=== PATIENT | male | born 1965 | race Caucasian/White ===

== ENCOUNTER 2017-04-04 05:17 | Day surgery (SDC) | payer OTHER ==
[2017-03-24 13:35] VITALS: BMI 29.2
[2017-04-04] MEDS ORDERED: BUPIVACAINE HCL/PF 0.5% (5MG/ML) 10 ML VIAL ONE (07:25)
[2017-04-04] MEDS ORDERED: LIDOCAINE 1%/EPI 1:100000 (50 ML MULTI DOSE VIAL) ONE (07:25)
[2017-04-04] MEDS ORDERED: MIDAZOLAM HCL 2 MG/2 ML SINGLE DOSE VIAL ONE (07:52)
[2017-04-04] MEDS ORDERED: PROPOFOL 20 ML ONE (07:52)
[2017-04-04] MEDS ORDERED: LIDOCAINE HCL/PF 2% SDV 5ML VIAL ONE (07:53)
[2017-04-04] MEDS ORDERED: DEXAMETHASONE SOD PHOSPHATE 4 MG/1 ML VIAL ONE (07:57)
[2017-04-04] MEDS ORDERED: SUCCINYLCHOLINE CHLORIDE 200 MG/10 ML VIAL ONE (08:08)
[2017-04-04] MEDS ORDERED: KETOROLAC TROMETHAMINE 30 MG/1 ML VIAL ONE (08:33)
[2017-04-04] MEDS ORDERED: LIDOCAINE HCL 1%, 10 MG/ML (20ML VIAL) IJ ONE (08:38)
[2017-04-04] MEDS ORDERED: BUPIVACAINE HCL/PF (5 MG/ML) 30 ML VIAL IJ ONE (08:39)
[2017-04-04] MEDS ORDERED: oxyCODONE HCL 5 MG TABLET PO PRN (08:42)
[2017-04-04] MEDS ORDERED: PROMETHAZINE HCL 25 MG/1 ML VIAL IVPUSH PRN (08:42)
[2017-04-04] MEDS ORDERED: LACTATED RINGERS SOLUTION 1,000 ML IV SCH (08:45)
--- NOTE | 2017-04-04 08:52 | HP ---
[facility] - Chief Complaint Chief Complaint: right knee pain History Source: Patient Limitations to Obtaining History: No Limitations - Past Medical History Allergies/Adverse Reactions: Allergies Allergy/AdvReac Type Severity Reaction Status Date / Time No Known Drug Allergies Allergy Verified 04/04/17 06:40 - Current Medications Current Medications: Home Medications Medication Instructions Recorded Amlodipine Bes/Olmesartan Med 1 each PO DAILY 03/24/17 [Amlodipine-Olmesartan 5-20 mg] Cholecalciferol (Vitamin D3) 50,000 unit PO WEEKLY 03/24/17 [Vitamin D3] Simvastatin 20 mg PO HS 03/24/17 Satellite Physical Exam - Physical Examination Vital Signs: Vital Signs Period Temp Pulse Resp BP Sys/Douglas Pulse Ox Last 24 Hr 97.3 F 56 18 135/84 97 Extremities: Other (+ joint line tenderness) Satellite Impression/Plan - Impression/Plan Impression: internal derangement right knee Operative Procedure: arthroscopy right knee Date to be Performed: 04/04/17
--- NOTE | 2017-04-04 08:55 | OP ---
Operative Note - Note: Operative Date: 04/04/17 Pre-Operative Diagnosis: internal derangement right knee Operation: arthroscopy right knee and debridement Post-Operative Diagnosis: Same as Pre-op Surgeon: Roel Yeboah Anesthesia: General Operative Report Dictated: Yes
[2017-04-04 09:20] VITALS: TEMP 97.8
[2017-04-04 12:26] VITALS: BP 128/78; PULSE 66
--- NOTE | 2017-04-05 10:26 | OP ---
DATE OF OPERATION: 04/04/2017 PREOPERATIVE DIAGNOSIS: Internal derangement, right knee. POSTOPERATIVE DIAGNOSIS: Internal derangement, right knee. PROCEDURE: Arthroscopy, right knee, with debridement. SURGICAL ATTENDING: Roel Yeboah MD ANESTHESIA: General with LMA. CLOSURE: Nylon 4-0. COMPLICATIONS: None. CONDITION: To recovery room in stable condition. DESCRIPTION OF OPERATIVE PROCEDURE: Patient taken to the operating room on April 04, 2017. General anesthesia with LMA was administered by the anesthesiologist. Right lower extremity was prepped and draped in the usual sterile fashion. Superolateral, medial and lateral infrapatellar portal sites were infiltrated with 1% Xylocaine with epinephrine. Superolateral portal was made with a 15 blade, blunt trocar. The knee was aspirated which revealed about 40 mL of turbid fluid with some white fibrinous pieces. The knee was then inflated with a cocktail of 10 mL of 1% Xylocaine, 10 mL of 0.5% Marcaine, 20 mL of arthroscopic saline. The fluid which was removed from the knee was sent to the laboratory for evaluation, possible crystals. The medial and lateral infrapatellar portal sites were infiltrated with 1% Xylocaine with epinephrine. The portals were then made with a 15 blade, blunt trocar. The scope was placed in the lateral infrapatellar portal and up to the suprapatellar pouch. The pouch was visualized to be clean. The medial and lateral gutters were visualized to be clean. The undersurface of the patella and trochlea were found to have some mild changes throughout. Any loose articular cartilage was debrided using a shaver. With valgus stress on the knee, the medial compartment was entered. Medial meniscus visualized, probed, found to be intact. The medial femoral condyle was also basically intact. There was some anterior fibrous tissue which was debrided using the shaver. The ACL was visualized, probed, found to be intact. In the figure-4 position, the lateral compartment was entered. Lateral meniscus visualized, probed, found to be intact. Lateral femoral condyle was run and found to be intact as was the lateral tibial plateau. The knee was irrigated with copious amounts of irrigation. Portals were closed with 4-0 nylon. Prior to closure, 20 mL of 0.5% Marcaine was infused into the knee for postoperative analgesia. Patient awakened from anesthesia. Transferred to recovery in stable condition. No complications. Estimated blood loss negligible. ROEL YEBOAH M.D. JULIO/[id number]
--- NOTE | 2017-04-07 10:32 | PATH ---
Surgical Pathology Report Patient Name: ASIA STILL [facility]. Rec. #: [id number] /Age/Gender: 1965 (Age: 52) / M Account: [id number] Location: [facility] Taken: 04/04/2017 Received: 04/04/2017 Reported: 04/07/2017 Physicians: Roel Yeboah M.D. Specimen(s) Received SHAVINGS RIGHT KNEE Clinical History Right knee internal derangement Final Diagnosis RIGHT KNEE, ARTHROSCOPIC SHAVINGS: INFLAMED SYNOVIUM WITH MARKED LYMPHOPLASMACYTIC INFILTRATE, FIBROCARTILAGE WITH MYXOID DEGENERATIVE CHANGES, AND PORTIONS OF HYALINE CARTILAGE. Comment: The histologic findings are nonspecific, but can be seen with rheumatoid arthritis or other rheumatologic disorders. Recommend correlation with clinical findings and followup as clinically indicated. Electronically Signed David Ramirez M.D. Gross Description Received in formalin, labeled "right knee shavings," is a 4.0 x 3.5 x 0.4 cm. aggregate of oglesby-yellow soft tissue fragments. A shipping services sales representative portion is submitted in one cassette. /04/04/201704/04/2017
== END 2017-04-04 11:05 | disposition home or self-care (01) ==
LOC: JASU-SURG 05:17
PROVIDERS: ATTEND Orthopaedic Surgery
PROC: 0SBC4ZZ Excision of Right Knee Joint, Percutaneous Endoscopic Approach (ICD-10-PCS; principal; 2017-04-04 08:00)
DX: M23.91 Unspecified internal derangement of right knee (principal)
CPT/HCPCS: 88304-TC; 89060; 94760